=== PATIENT | male | born 1990 | race Caucasian/White ===

== ENCOUNTER 2024-03-30 06:00 | Day surgery (SDC) | payer OTHER ==
[2024-03-26 09:58] LABS: HEMOGLOBIN 15.6 g/dL (13-16.00); MEAN CELL VOLUME 80.9 fL (80.0-100.00); MEAN CORPUSCULAR HEMOGLOBIN 28.1 pg (27.00-32.0); MEAN CORPUSCULAR HGB CONC 34.7 g/dl (32.0-36.0); PLATELET COUNT 232 K/uL (150-450); RED BLOOD COUNT 5.55 M/uL (4.00-6.00); RED CELL DISTRIBUTION WIDTH 13.2 % (11.5-14.5)
[2024-03-26 10:04] LABS: URINE APPEARANCE Clear; URINE BILIRRUBIN Negative (NEGATIVE); URINE BLOOD Negative; URINE COLOR Yellow; URINE GLUCOSE Negative (NEGATIVE); URINE KETONE Negative (NEGATIVE); URINE LEUKOCYTE Negative; URINE NITRATE Negative; URINE PROTEIN Negative (NEGATIVE); URINE UROBILINOGEN 0.2 E.U./dl
[2024-03-26 10:10] LABS: URINE RBC 4.7 uL (0.0-20.8); URINE WBC 3.3 uL (0.0-23.2)
[2024-03-26 10:15] LABS: URINE BACTERIA 3.7 uL (0.0-1933); URINE CAST 0.15 uL (0.0-1.40)
[2024-03-26 10:52] LABS: ALBUMIN 3.9 gm/dL (3.4-5.0); BILIRUBIN TOTAL 0.64 mg/dL (0.3-1.2); CREATININE SERUM 0.84 mg/dL (0.70-1.30); GFR 104.6; GLOBULINA 3.3 G/DL (2.4-3.5); INR 0.98; POTASSIUM 4.07 mEq/L (3.5-5.1); PROTHROMBIN TIME 10.3 SECONDS (9.0-11.5); TOTAL PROTEIN 7.2 gm/dL (6.4-8.2)
[2024-03-26 11:02] LABS: CALCIUM 9.7 mg/dL (8.5-10.1)
[~2024-03-30 06:00] MED LIST: METFORMIN HCL500 MG; TOPROL XL50 M1
[2024-03-30] MEDS ORDERED: CEFAZOLIN SODIUM 1,000 MG VIAL IV ONE (11:00)
[2024-03-30] MEDS ORDERED: SUGAMMADEX SODIUM 200 MG/2 ML VIAL IV ONE (11:15)
[2024-03-30] MEDS ORDERED: FAMOTIDINE/PF 20 MG/10 ML SYRINGE IV SCH (11:45)
[2024-03-30] MEDS ORDERED: CEFAZOLIN SODIUM 1,000 MG VIAL IV SCH (11:45)
== END 2024-03-30 15:30 | disposition home or self-care (01) ==
LOC: CIR.AMB 06:00
PROVIDERS: ATTEND Specialist
DX: K42.9 Umbilical hernia without obstruction or gangrene (principal); I10 Essential (primary) hypertension; E11.9 Type 2 diabetes mellitus without complications; Z91.013 Allergy to seafood